=== PATIENT | female | born 1970 | race African-American/Black ===

== ENCOUNTER → 2023-11-11 10:07 | Outpatient (REF) | payer BC, SELFPAY | LOC: HWRAD 10:07 | PROVIDERS: ATTENDING PHYSICIAN Nurse Practitioner Family | DX: R06.00 Dyspnea, unspecified (principal); R07.9 Chest pain, unspecified | CPT/HCPCS: 71046 ==

== ENCOUNTER 2023-11-24 20:16 | Emergency (ER) | payer BC, SELFPAY ==
[2023-11-24] MEDS: ADRENALIN 0.299999999999999989 MG IM (20:22)
[2023-11-24 20:24] VITALS: BP 128/77
[2023-11-24] MEDS: DECADRON 10 MG IV (20:28)
[2023-11-24] MEDS: PEPCID 20 MG IV (20:29)
[2023-11-24] MEDS: NSS 1000 IV (20:29)
[2023-11-24 20:34] LABS: % Basophils 0.6 % (0-2); % Eosinophils 4.1 % (0-6); % Immature Granulocytes 0.2 % (0-0.5); % Lymphocytes 57.6 % (20.5-51.1); % Monocytes 7.2 % (1.7-9.3); % Neutrophils 30.3 % (42.2-75.2); Absolute Basophils 0.1 10^3/uL (0-0.2); Absolute Eosinophils 0.4 10^3/uL (0-0.7); Absolute Lymphocytes 5.8 10^3/uL (1.2-3.4); Absolute Monocytes 0.7 10^3/uL (0.1-0.6); Absolute Neutrophils 3.1 10^3/uL (1.4-6.5); Hemoglobin 15.2 g/dL (12.0-16.0); Mean Corp Hgb Conc. 33.8 g/dL (33.0-37.0); Mean Corpuscular Hgb 29.7 pg (27.0-31.0); Mean Corpuscular Volume 87.9 fL (81.0-99.0); Mean Platelet Volume 10.6 fL (7.4-10.4); Nucleated Red Blood Cells % 0 %; Platelet Count 240 10^3/uL (130-400); Red Blood Cell Count 5.12 10^6/uL (4.20-5.40); Red Cell Dist. Width 13.4 % (11.5-14.5); White Blood Cell Count 10.1 10^3/uL (4.8-10.8)
[2023-11-24 20:55] LABS: ALT (SGPT) 14 U/L (0-35); AST (SGOT) 22 U/L (14-36); Albumin 4.1 g/dl (3.5-5.0); Alkaline Phosphatase 95 U/L (38-126); Blood Urea Nitrogen 19 mg/dl (7-17); Calcium 9.1 mg/dl (8.4-10.2); Carbon Dioxide 28 mmol/L (22-30); Chloride 103 mmol/L (98-107); Glucose 155 mg/dl (70-99); Potassium 3.6 mmol/L (3.5-5.1); Sodium 139 mmol/L (135-145); Total Bilirubin 0.4 mg/dl (0.2-1.3); Total Protein 6.7 g/dl (6.3-8.2); eGFR > 60.00
[2023-11-24 21:00] VITALS: BP 100/49
[2023-11-24 22:00] VITALS: BP 105/62
--- NOTE | 2023-11-24 22:23 | ED.GENMED ---
History of Present Illness
General
Chief Complaint: Allergic Reaction
Source: patient and spouse
Exam Limitations: none
Time Seen by Provider: 11/24/23 20:23
Nursing documentation reviewed up to this point in time: agreed with
Travel History
Have you had any contact with someone who has COVID-19?: No
Do you have any symptoms of coronavirus? Fever > 100 degrees, chills, cough, shortness of breath, sore throat, loss of taste or smell, muscle aches, or headache?: No
History of Present Illness
History of Present Illness:
53-year-old female with past medical history of previous seizure disorder not currently requiring medication, previous stroke anxiety depression presenting to the emergency department today with concerns of swelling of the face and skin
lightheadedness prior to arrival unsure of any specific exposures but was doing laundry at the time. She is unsure if there is any new detergents used no significant trouble breathing no vomiting but does have some stomach cramping
Past History
Past History
ED Past Medical History: Asthma, Cancer (Ovarian cancer, Skin Cervix), CVA ( and TIA Right sided weakness), Hypercholesterolemia, Seizures, Psychiatric (Anxiety ,Depression, PTSD) and Other ( PE, epilepsy, pericarditis, peptic ulcer disease,
enlarged heart Pericarditis, Stomach ulcers)
ED Past Surgical History: Cholecystectomy and Gynecological (Cervical CA with cervical removal, Ovarian mass with removal of the Ovarie, Hysterectomy total)
Social History
Tobacco: Smoker
Alcohol: None
Drug: None
Personal:
Living: with family
Employment: Employed
Family History
Family History: Adopted (Patient is adopted)
Review of Systems
Review of Systems
Allergies reviewed?: Yes
All Other Systems: ROS reviewed and negative except as documented in HPI and ROS
Phy Exam
Physical Exam
Physical Exam:
GENERAL: Alert , in no apparent distress
EYE: pupils equal and reactive
NECK: Supple, no significant adenopathy.
ENT: o/p clr, mmm.
CARDIAC: Regular rate and rhythm .
LUNGS: Clear breath sounds bilaterally, no acute respiratory distress, no wheezes/rales/rhonchi
ABDOMEN: Soft, without focal tenderness, no r/g, no cvat
NEUROLOGICAL: Alert and oriented, no focal neuro deficits
SKIN: Diffuse raised wheals throughout the face neck chest back arms and upper legs.
MUSCULOSKELETAL: No edema, well perfused.
PSYCH: Normal and appropriate interaction.
Course
Orders/Labs/Results
Orders:
Orders
11/24/23 20:19
EPINEPHrine PF [Adrenalin] 1 mg .ROUTE .STK-MED ONE
11/24/23 20:21
EPINEPHrine PF [Adrenalin] 0.3 mg IM NOW STA
11/24/23 20:23
0.9% Sodium Chloride 1000 ml [Nss] 1,000 ml IV BOLUS
Dexamethasone Sod Phosphate [Decadron] 10 mg IV NOW STA
Famotidine [Pepcid] 20 mg IV NOW STA
11/24/23 20:26
Dexamethasone Sod Phosphate [Decadron] 20 mg .ROUTE .STK-MED ONE
Famotidine [Pepcid] 20 mg .ROUTE .STK-MED ONE
11/24/23 20:27
Complete Blood Count/With Diff Urgent
Comprehensive Metabolic Panel Urgent
Abnormal Lab Results
11/24/23
20:27
MPV 10.6 H fL
(7.4-10.4)
Absolute Lymphs (auto) 5.8 H 10^3/uL
(1.2-3.4)
Absolute Monos (auto) 0.7 H 10^3/uL
(0.1-0.6)
Neutrophils % 30.3 L %
(42.2-75.2)
Lymphocytes % 57.6 H %
(20.5-51.1)
BUN 19 H mg/dl
(7-17)
Glucose 155 H mg/dl
(70-99)
11/24/23 20:27
11/24/23 20:27
Vital Signs
Initial and Last Documented VS:
Initial Vital Signs
Pulse Resp Pulse Ox
88 17 98
11/24/23 20:23 11/24/23 20:23 11/24/23 20:23
Last Documented Vital Signs
Pulse Resp Pulse Ox
88 17 98
11/24/23 20:23 11/24/23 20:23 11/24/23 20:23
MDM/Problems Addressed
MDM/Problems Addressed:
53-year-old female presenting to the emergency department today with concerns of diffuse hives over the past 15 minutes took 3 Benadryl prior to arrival but did not use her EpiPen. Unsure of what particular exposure she had. She claims that she
does have some lightheadedness but has been able to swallow denies shortness of breath does have some stomach cramping. Symptoms appear to be consistent with anaphylaxis patient was given dose of epinephrine with immediate improvement of symptoms.
Additionally given steroids as well as famotidine. Patient was monitored for 2 hours with significant improvement of symptoms patient near asymptomatic at time of discharge otherwise return precautions given. Advised for close outpatient follow-up.
*Critical Care Note
Total Time (30-74mins, 75-104mins- exclusive of procedures): Not Applicable
ED Attending Note
-
Portions of this chart may have been created with voice recognition software.� Occasional wrong word or��sound alike� substitutions may have occurred due to the inherent limitations of voice recognition software.
Discharge Plan
Departure
Patient Disposition: Home (Routine Discharge)
Date of Disposition: 11/24/23
Time of Disposition: 22:26
Patient with high blood pressure during this ER visit?: No
Condition: Good
Covid-19: Not Applicable
Discharge Problem:
Allergic reaction
Instructions: Hives (DC)
Prescriptions:
New
prednisone 20 mg tablet
40 mg PO DAILY 4 Days Qty: 8 0RF
cetirizine [Zyrtec] 10 mg tablet
10 mg PO BID 4 Days Qty: 8 0RF
famotidine 20 mg tablet
20 mg PO BID 4 Days Qty: 8 0RF
No Action
Benadryl:
3 tab PO DAILY PRN (Reason: allergic reaction)
atorvastatin 20 mg tablet
20 mg PO DAILY
clonazepam 0.5 mg tablet
0.5 mg PO DAILY PRN (Reason: anxiety)
aspirin 81 mg Tablet,Delayed Release (Dr/Ec)
81 mg PO DAILY
albuterol sulfate 90 mcg/actuation HFA aerosol inhaler
2 puff INHALATION R Q6 PRN (Reason: sob/wheezing)
Referrals:
Jordan Cowart CRNP [Family Provider] -
Activity Restrictions/Additional Instructions:
You came to the emergency department today with concerns of hives. You had additional symptoms that were concerning for potential anaphylaxis. You are given dose of epinephrine as well as a steroid and histamine blockers with significant
improvement after a few hours. Please follow closely with your primary care doctor and continue the prescribed medications over the next 4 days. Return to the emergency department for any worsening, new or concerning symptoms.
Interventions
Interventions:
*Risk Screen - Suicide Last Done: 11/24/23 20:23
*General Assessment Last Done: 11/24/23 20:23
*Neglect/Abuse Screening Last Done: 11/24/23 20:23
ED- Fall Risk Assessment Last Done: 11/24/23 20:23
*ED COVID-19 Vaccine History Last Done: 11/24/23 20:23
ED- Cardiac Assessment Last Done: 11/24/23 20:23
ED- Pulmonary Assessment Last Done: 11/24/23 20:23
ED-Skin Assessment Last Done: 11/24/23 20:23
[2023-11-24 23:00] VITALS: BP 104/61
== END 2023-11-24 23:38 | disposition home or self-care (01) ==
LOC: EMR 20:16
PROVIDERS: Physician Assistant; EMERGENCY PHYSICIAN Emergency Medicine; FAMILY PHYSICIAN Nurse Practitioner Family
DX: T78.40XA Allergy, unspecified, initial encounter (principal); X58.XXXA Exposure to other specified factors, initial encounter; R22.0 Localized swelling, mass and lump, head; R42 Dizziness and giddiness; J45.909 Unspecified asthma, uncomplicated; E78.00 Pure hypercholesterolemia, unspecified; F41.9 Anxiety disorder, unspecified; F43.10 Post-traumatic stress disorder, unspecified; Z87.11 Personal history of peptic ulcer disease; I51.7 Cardiomegaly; F17.200 Nicotine dependence, unspecified, uncomplicated; G40.909 Epilepsy, unspecified, not intractable, without status epilepticus; Z85.41 Personal history of malignant neoplasm of cervix uteri; Z85.43 Personal history of malignant neoplasm of ovary; Z86.73 Personal history of transient ischemic attack (TIA), and cerebral infarction without residual deficits; Z90.49 Acquired absence of other specified parts of digestive tract; Z90.710 Acquired absence of both cervix and uterus
CPT/HCPCS: 99283; 96374; 96375; 96372; 96361; 80053; 85025

== ENCOUNTER 2023-11-25 11:12 | Emergency (ER) | payer BC, SELFPAY ==
[2023-11-25 11:17] VITALS: BP 150/77
[2023-11-25 12:56] VITALS: BP 141/79; BMI 27.2
[2023-11-25 13:00] VITALS: BP 127/82
--- NOTE | 2023-11-25 13:05 | ED.GENMED ---
History of Present Illness
General
Chief Complaint: Allergic Reaction
Source: patient and family
Exam Limitations: none
Time Seen by Provider: 11/25/23 12:44
Nursing documentation reviewed up to this point in time: agreed with
Travel History
Have you had any contact with someone who has COVID-19?: No
Do you have any symptoms of coronavirus? Fever > 100 degrees, chills, cough, shortness of breath, sore throat, loss of taste or smell, muscle aches, or headache?: No
History of Present Illness
History of Present Illness:
Patient is a 53-year-old female with past medical history of PTSD anxiety depression hospitalized in August for depression,' micro seizures' presents to the ER for evaluation. Patient is a poor historian son at bedside. Patient has a history of
chronic hives with no diagnosis. She was seen here yesterday for allergic reaction hives. Yesterday she was given epinephrine and Benadryl Pepcid and was discharged home with Zyrtec prednisone and famotidine. In addition to these medicines she
did take Benadryl this morning. She presents back to the ER because when she woke up this morning her eyelids were swollen and she 'felt off.'
She presently denies any chest pain shortness of breath. Denies any recent fever or chills. She had no difficulty breathing at home or here in the ER. Denies any lip or tongue swelling. No additional rash since yesterday. Hives have since
resolved.
Triage note states that patient is' detoxing off meds.' She reports that her family doctor has simply taking her off Trileptal Rexulti and Oksana which she was previously on.
Past History
Past History
ED Past Medical History: Asthma, Cancer (Ovarian cancer, Skin Cervix), CVA ( and TIA Right sided weakness), Hypercholesterolemia, Seizures, Psychiatric (Anxiety ,Depression, PTSD) and Other ( PE, epilepsy, pericarditis, peptic ulcer disease,
enlarged heart Pericarditis, Stomach ulcers)
ED Past Surgical History: Cholecystectomy and Gynecological (Cervical CA with cervical removal, Ovarian mass with removal of the Ovarie, Hysterectomy total)
Social History
Tobacco: Smoker
Alcohol: None
Drug: None
Personal:
Living: with family
Employment: Employed
Family History
Family History: Adopted (Patient is adopted)
Review of Systems
Review of Systems
Allergies reviewed?: Yes
All Other Systems: ROS reviewed and negative except as documented in HPI and ROS
Constitutional: Reports no symptoms; Denies fever, fatigue or chills
Respiratory: Denies trouble breathing
Cardiac: Reports no symptoms; Denies palpitations
ABD/GI: Reports no symptoms; Denies abdominal pain, nausea or vomiting
: Reports no symptoms
Musculoskeletal: Reports no symptoms
Skin: Reports no symptoms; Denies itching or rash
Neurological: Reports other ('feel off' patient)
Phy Exam
General Physical Exam
General Presentation: no apparent distress
General age: appears stated age
General Skin: warm and dry
General Habitus: normal
General Mental: alert
General Hydration: appears well hydrated
ENT Exam
ENT Exam: EOMI, TM's normal and other (faint minimal erythema to bilateral upper eyelids)
Eye Exam
Eye Exam: PERRL and EOMI
Eye Exam General: PERRL: bilateral and EOM intact: bilateral
Pupil Exam: Bilateral: round and reactive
Cardiovascular Exam
Cardiovascular Exam: regular rate/rhythm, no murmur and normal peripheral pulses
Pulmonary Exam
Pulmonary Exam: lungs clear and no respiratory distress
Neurological Exam
Neurological Exam: alert and oriented x3
Vincent Coma Scale
Eye Opening: Spontaneous
Verbal Response: Oriented
Motor Response: Obeys Commands
GCS Total Score: 15
Musculoskeletal Exam
Musculoskeletal Exam: full ROM
Skin Exam
Skin Exam: normal color and warm/dry
Psychiatric Exam
Psychiatric Exam: normal mood/affect
Course
Orders/Labs/Results
Orders:
Orders
11/25/23 11:21
ECG [Electrocardiogram (*1)] Urgent
Reason for Study: Other
Other Reason for Exam: tingling
11/25/23 11:22
EKG- Treatment ONCE
11/25/23 13:03
Complete Blood Count/With Diff Urgent
Comprehensive Metabolic Panel Urgent
Troponin I Urgent
11/25/23 13:05
CT Head W/o Iv Contrast Urgent
Comment:
Reason For Exam: change in ms
0.9% Sodium Chloride 1000 ml [Nss] 1,000 ml IV BOLUS
11/25/23 13:49
Urine Drug Abuse Screen Urgent
Date Specimen was Collected: 11/25/23
Time Specimen was Collected: 13:36
Abnormal Lab Results
11/25/23
13:03
WBC 11.2 H 10^3/uL
(4.8-10.8)
MPV 10.8 H fL
(7.4-10.4)
Absolute Neuts (auto) 9.8 H 10^3/uL
(1.4-6.5)
Neutrophils % 87.5 H %
(42.2-75.2)
Lymphocytes % 10.9 L %
(20.5-51.1)
Monocytes % 1.1 L %
(1.7-9.3)
Glucose 120 H mg/dl
(70-99)
11/25/23 13:03
11/25/23 13:03
Vital Signs
Initial and Last Documented VS:
Initial Vital Signs
Temp Pulse Resp BP Pulse Ox
98.3 F 78 20 150/77 98
11/25/23 11:17 11/25/23 11:17 11/25/23 11:17 11/25/23 11:17 11/25/23 11:17
Last Documented Vital Signs
Temp Pulse Resp BP Pulse Ox
98.3 F 67 16 124/79 99
11/25/23 11:17 11/25/23 14:00 11/25/23 14:00 11/25/23 14:00 11/25/23 14:00
MDM/Problems Addressed
MDM/Problems Addressed:
Patient presents awake alert no acute distress. Patient was seen here for allergic reaction last night and presented to the ER because she just felt off this morning she noticed her upper eyelids were puffy. She has a history of depression anxiety
recently taken off her medication by family doctor.
She presents however in no acute distress well-appearing
With vague complaints patient's workup was unremarkable including a negative CT head though she denied headache.
Patient has stable vital signs denies any recent fever she is afebrile here lungs are clear no difficulty breathing lip or tongue swelling nonhypoxic. She presents mildly anxious nontachycardic nontachypneic nonhypoxic. White count minimally
elevated 11.2 patient was given steroids and on steroids presently prescribed yesterday normal electrolytes.
Patient is positive for marijuana.
No acute abnormalities on workup
will d/c home
*Radiology
Radiology exam reviewed: radiology read reviewed
*Pulse Oximetry
Patient hypoxic: no
*EKG
Interpreted by ED Provider?: Yes
Interpretation: normal
Comparison EKG: no changes
Heart Rate: 65
Rate: normal
Rhythm: sinus
Ischemia: no ischemia
*Critical Care Note
Total Time (30-74mins, 75-104mins- exclusive of procedures): Not Applicable
ED Attending Note
-
Portions of this chart may have been created with voice recognition software.� Occasional wrong word or��sound alike� substitutions may have occurred due to the inherent limitations of voice recognition software.
Discharge Plan
Departure
Patient Disposition: Home (Routine Discharge)
Date of Disposition: 11/25/23
Time of Disposition: 14:30
Patient with high blood pressure during this ER visit?: No
Discharge Problem:
medical evaluation
Instructions: BLOOD PRESSURE
Prescriptions:
No Action
Benadryl:
3 tab PO DAILY PRN (Reason: allergic reaction)
atorvastatin 20 mg tablet
20 mg PO DAILY
clonazepam 0.5 mg tablet
0.5 mg PO DAILY PRN (Reason: anxiety)
aspirin 81 mg Tablet,Delayed Release (Dr/Ec)
81 mg PO DAILY
albuterol sulfate 90 mcg/actuation HFA aerosol inhaler
2 puff INHALATION R Q6 PRN (Reason: sob/wheezing)
prednisone 20 mg tablet
40 mg PO DAILY 4 Days Qty: 8 0RF
cetirizine [Zyrtec] 10 mg tablet
10 mg PO BID 4 Days Qty: 8 0RF
famotidine 20 mg tablet
20 mg PO BID 4 Days Qty: 8 0RF
Referrals:
Jordan Cowart CRNP [Family Provider] -
Activity Restrictions/Additional Instructions:
As discussed you were seen here in the ER today for evaluation and your workup was unremarkable. Follow-up with your family doctor as discussed in the next several days for reevaluation continue to take your medications as previously prescribed.
Return if any worsening of symptoms.
Interventions
Interventions:
*Risk Screen - Suicide Last Done: 11/25/23 11:17
*General Assessment Last Done: 11/25/23 11:17
*Neglect/Abuse Screening Last Done: 11/25/23 11:17
*ED COVID-19 Vaccine History Last Done: 11/25/23 12:59
ED- Cardiac Assessment Last Done: 11/25/23 12:59
ED- Pulmonary Assessment Last Done: 11/25/23 12:59
ED-Skin Assessment Last Done: 11/25/23 12:59
[2023-11-25 13:15] LABS: % Basophils 0.1 % (0-2); % Immature Granulocytes 0.4 % (0-0.5); % Lymphocytes 10.9 % (20.5-51.1); % Monocytes 1.1 % (1.7-9.3); % Neutrophils 87.5 % (42.2-75.2); Absolute Lymphocytes 1.2 10^3/uL (1.2-3.4); Absolute Monocytes 0.1 10^3/uL (0.1-0.6); Absolute Neutrophils 9.8 10^3/uL (1.4-6.5); Hemoglobin 13.6 g/dL (12.0-16.0); Mean Corp Hgb Conc. 34.9 g/dL (33.0-37.0); Mean Corpuscular Hgb 29.9 pg (27.0-31.0); Mean Corpuscular Volume 85.7 fL (81.0-99.0); Mean Platelet Volume 10.8 fL (7.4-10.4); Nucleated Red Blood Cells % 0 %; Platelet Count 216 10^3/uL (130-400); Red Blood Cell Count 4.55 10^6/uL (4.20-5.40); Red Cell Dist. Width 13.4 % (11.5-14.5); White Blood Cell Count 11.2 10^3/uL (4.8-10.8)
[2023-11-25] MEDS: NSS 1000 IV (13:21)
[2023-11-25 13:26] LABS: ALT (SGPT) 13 U/L (0-35); AST (SGOT) 16 U/L (14-36); Albumin 4.1 g/dl (3.5-5.0); Alkaline Phosphatase 87 U/L (38-126); Blood Urea Nitrogen 14 mg/dl (7-17); Calcium 9.5 mg/dl (8.4-10.2); Carbon Dioxide 22 mmol/L (22-30); Chloride 107 mmol/L (98-107); Estimated Creatinine Clearance 115 ml/min; Glucose 120 mg/dl (70-99); Potassium 4.1 mmol/L (3.5-5.1); Sodium 138 mmol/L (135-145); Total Bilirubin 0.3 mg/dl (0.2-1.3); Total Protein 6.7 g/dl (6.3-8.2); eGFR > 60.00
[2023-11-25 13:37] LABS: Troponin I < 0.012 ng/ml
[2023-11-25 14:00] VITALS: BP 124/79
[2023-11-25 14:18] LABS: Amphetamines Negative (Negative); Barbiturates Negative (Negative); Benzodiazepines Negative (Negative); Buprenorphine Negative (Negative); Cocaine Negative (Negative); Marijuana Positive (Negative); Methadone Negative (Negative); Methamphetamines Negative (Negative); Opiates Negative (Negative); Phencyclidine Negative (Negative); Tricyclic Antidepressants Negative (Negative)
== END 2023-11-25 15:08 | disposition home or self-care (01) ==
LOC: EMR 11:12
PROVIDERS: Nurse Practitioner; EMERGENCY PHYSICIAN Emergency Medicine; FAMILY PHYSICIAN Nurse Practitioner Family
DX: Z00.00 Encounter for general adult medical examination without abnormal findings (principal); F17.200 Nicotine dependence, unspecified, uncomplicated; F12.90 Cannabis use, unspecified, uncomplicated; D72.829 Elevated white blood cell count, unspecified
CPT/HCPCS: 99285; 96360; 70450; 80053; 80306; 84484; 85025; 93005

== ENCOUNTER → 2023-12-02 08:11 | Outpatient (REF) | payer BC, SELFPAY | LOC: HWRAD 08:11 | PROVIDERS: ATTENDING PHYSICIAN Nurse Practitioner Family | DX: Z12.31 Encounter for screening mammogram for malignant neoplasm of breast (principal); R10.9 Unspecified abdominal pain; R91.1 Solitary pulmonary nodule | CPT/HCPCS: 71260; 76700; 77063; 77067; Q9967 ==

== ENCOUNTER 2024-01-21 04:32 | Emergency (ER) | payer BC, MEDICARE, SELFPAY ==
[2024-01-21 04:35] VITALS: BP 158/74
--- NOTE | 2024-01-21 05:24 | ED.GENMED ---
History of Present Illness
<JAGJIT Adhikari - Last Filed: 01/21/24 05:49>
General
Chief Complaint: Swelling
Source: patient and significant other
Exam Limitations: none
Time Seen by Provider: 01/21/24 04:54
Nursing documentation reviewed up to this point in time: agreed with
Travel History
Have you had any contact with someone who has COVID-19?: No
Do you have any symptoms of coronavirus? Fever > 100 degrees, chills, cough, shortness of breath, sore throat, loss of taste or smell, muscle aches, or headache?: No
History of Present Illness
History of Present Illness:
This is a 53 year old female with significant PMHx presents to the ED with complaint of R sided cheek pain and swelling x1 day. She reports she was watching tv when she noticed facial swelling. She states pain and swelling worsened throughout the
night. She states she has pain with chewing and had chicken noodle soup for dinner. She took Ibuprofen aroun 8:00pm last night that provided mild relief and Benadyl 50mg which did not. She denies shortness of breath, chest pain, headache, NVD, sore
throat, hoarseness, drooling, fevers, or chills.
Past History
<JAGJIT Adhikari - Last Filed: 01/21/24 05:49>
Past History
ED Past Medical History: Asthma, Cancer (Ovarian cancer, Skin Cervix), CVA ( and TIA Right sided weakness), Hypercholesterolemia, Seizures, Psychiatric (Anxiety ,Depression, PTSD) and Other ( PE, epilepsy, pericarditis, peptic ulcer disease,
enlarged heart Pericarditis, Stomach ulcers)
ED Past Surgical History: Cholecystectomy and Gynecological (Cervical CA with cervical removal, Ovarian mass with removal of the Ovarie, Hysterectomy total)
Social History
Tobacco: Smoker
Alcohol: None
Drug: None
Personal:
Living: with family
Employment: Employed
Family History
Family History: Adopted (Patient is adopted)
Review of Systems
<JAGJIT Adhikari - Last Filed: 01/21/24 05:49>
Review of Systems
Allergies reviewed?: Yes
All Other Systems: Not applicable
Constitutional: Reports no symptoms
EENT: Reports mouth pain (R sided ) and mouth swelling (R sided )
Respiratory: Reports no symptoms
Cardiac: Reports no symptoms
ABD/GI: Reports no symptoms
: Reports no symptoms
Musculoskeletal: Reports no symptoms
Skin: Reports no symptoms
Neurological: Reports no symptoms
Endocrine: Reports no symptoms
Hematologic/Lymphatic: Reports no symptoms
Psychiatric: Reports no symptoms
Phy Exam
<JAGJIT Adhikari - Last Filed: 01/21/24 05:49>
General Physical Exam
General Presentation: well appearing and no apparent distress
General Skin: warm and dry
General Habitus: normal
General Mental: alert
General Hydration: appears well hydrated
ENT Exam
ENT Exam: EOMI, pharynx normal, neck supple, normocephalic and other (R sided facial swelling, R inferior 2nd molar erythema and tender )
Eye Exam
Eye Exam: PERRL, cornea clear and conjunctiva normal
Cardiovascular Exam
Cardiovascular Exam: regular rate/rhythm, no edema, no murmur and normal peripheral pulses
Pulmonary Exam
Pulmonary Exam: lungs clear, no respiratory distress, no rales, no crackles, no rhonchi, no stridor, no wheezing and no cough
Gastrointestinal Exam
Gastrointestinal Exam: normal bowel sounds, non tender, soft, no organomegaly, no pulsatile mass and non distended
Neurological Exam
Neurological Exam: alert, oriented x3, no motor deficits and speech normal
Musculoskeletal Exam
Musculoskeletal Exam: full ROM and no edema
Skin Exam
Skin Exam: normal color, warm/dry, no rash and no petechia
Psychiatric Exam
Psychiatric Exam: normal mood/affect
Scores
<Caty Leonardo DO - Last Filed: 01/21/24 05:49>
Heart Failure Risk
Heart Failure Risk Score: Not Applicable
Course
<JAGJIT Adhikari - Last Filed: 01/21/24 05:49>
Orders/Labs/Results
Orders:
Orders
01/21/24 05:23
Clindamycin HCl [Cleocin] 300 mg PO NOW STA
Ketorolac [Toradol] 60 mg IM NOW STA
Vital Signs
Initial and Last Documented VS:
Initial Vital Signs
Temp Pulse Resp BP Pulse Ox
98 F 58 22 158/74 97
01/21/24 04:35 01/21/24 04:35 01/21/24 04:35 01/21/24 04:35 01/21/24 04:35
Last Documented Vital Signs
Temp Pulse Resp BP Pulse Ox
98 F 58 22 158/74 97
01/21/24 04:35 01/21/24 04:35 01/21/24 04:35 01/21/24 04:35 01/21/24 05:35
<Caty Leonardo DO - Last Filed: 01/21/24 05:49>
Orders/Labs/Results
Orders:
Orders
01/21/24 05:23
Clindamycin HCl [Cleocin] 300 mg PO NOW STA
Ketorolac [Toradol] 60 mg IM NOW STA
Vital Signs
Initial and Last Documented VS:
Initial Vital Signs
Temp Pulse Resp BP Pulse Ox
98 F 58 22 158/74 97
01/21/24 04:35 01/21/24 04:35 01/21/24 04:35 01/21/24 04:35 01/21/24 04:35
Last Documented Vital Signs
Temp Pulse Resp BP Pulse Ox
98 F 58 22 158/74 97
01/21/24 04:35 01/21/24 04:35 01/21/24 04:35 01/21/24 04:35 01/21/24 05:35
<JAGJIT Adhikari - Last Filed: 01/21/24 05:49>
MDM/Problems Addressed
Differential Diagnosis Includes:
Dental abscess, peritonsillar abscess, retropharyngeal abscess
Peritonsillar abscess considered due to facial swelling, however she does not have hoarseness, drooling, or muffling voice. Her uvula is midline. Retropharyngeal abscess considered, however her swelling is more on her R submandibular region. I
suspect this is a dental abscess due to an infected R inferior 2nd molar. She has pain with chewing. She has no fevers. Will prescribe Clindamycin.
<Caty Leonardo DO - Last Filed: 01/21/24 05:49>
*Pulse Oximetry
Patient hypoxic: no
*Critical Care Note
Total Time (30-74mins, 75-104mins- exclusive of procedures): Not Applicable
ED Attending Note
<JAGJIT Adhkiari - Last Filed: 01/21/24 05:49>
-
Portions of this chart may have been created with voice recognition software.� Occasional wrong word or��sound alike� substitutions may have occurred due to the inherent limitations of voice recognition software.
<Caty Leonardo DO - Last Filed: 01/21/24 05:49>
ED Attending Note
Patient seen and examined by attending physician: Yes
I performed the substantive portion of visit, reviewed & personally made and approve the management plan that is documented in note by myself or BI.: Yes
I performed a history and physical exam of patient and discussed management with resident, I reviewed resident's note and agree with documented findings and plan of care.: Yes
ED Attending Note:
This is a 53-year-old woman with prior history of PTSD/anxiety, depression, seizure disorder, chronic idiopathic hives who presents with swelling and pain right mandibular region that began yesterday, progressively worse through the evening. She
was concerned for possible allergic reaction but denies itch, no rash. No sore throat or difficulty swallowing.
She does admit to moderate right mandibular dental pain that began yesterday and since yesterday has been limiting her oral intake to soup, soft foods due to right mandibular molar pain.
She has not had a fever nor chills. No neck pain or coughing or shortness of breath.
She took a dose of ibuprofen for pain around 8 PM last night.
GENERAL: 53-year-old woman appears somewhat older than stated age, bright and alert, pleasant, appears in no acute distress. Respirations are easy and nonlabored. Speech is clear, no difficulty handling secretions.
EYE: pupils equal and reactive. anicteric
NECK: Supple, nontender, no meningismus, no significant adenopathy.
ENT: There is moderate soft tissue swelling right mid mandibular region with moderate local tenderness to palpation. Several dental fillings right mandibular molars with moderate tenderness right mandibular second molar with mild local gingival
erythema and edema but no fluctuance. Posterior pharynx is clear, oral mucosa is moist. TM clear b/l, nares patent.
CARDIAC: Regular rate and rhythm. no murmur.
LUNGS: Clear breath sounds bilaterally, no acute respiratory distress, no wheezes/rales/rhonchi
ABDOMEN: Soft, nondistended, without focal tenderness
NEUROLOGICAL: Alert and oriented x3, no focal neuro deficits. Gait is steady.
SKIN: Warm and dry, normal color, skin intact. No rash.
MUSCULOSKELETAL: No C/C/E. peripheral pulses are full and equal b/l. No palpable tenderness.
PSYCH: Normal and appropriate interaction.
History and exam consistent with acute dentalgia, dental abscess with local mandibular soft tissue swelling. There is no posterior pharyngeal edema, no swelling submandibular region nor significant adenopathy.
Will initiate a course of clindamycin and will give an IM dose of Toradol for pain.
Recommend continuing with soft diet, clear liquids with plan for prompt follow-up with her dentist for recheck.
Discharge Plan
Departure
Patient Disposition: Home (Routine Discharge)
Date of Disposition: 01/21/24
Time of Disposition: 05:40
Patient with high blood pressure during this ER visit?: Yes
Condition: Good
Discharge Problem:
Abscess, dental
Instructions: Soft Diet, Tooth Abscess ED
Prescriptions:
New
clindamycin HCl 300 mg capsule
300 mg PO QID Qty: 28 0RF
ibuprofen 800 mg tablet
800 mg PO QIDPRN PRN (Reason: pain, fever) Qty: 30 0RF
No Action
Benadryl:
3 tab PO DAILY PRN (Reason: allergic reaction)
atorvastatin 20 mg tablet
20 mg PO DAILY
clonazepam 0.5 mg tablet
0.5 mg PO DAILY PRN (Reason: anxiety)
aspirin 81 mg Tablet,Delayed Release (Dr/Ec)
81 mg PO DAILY
albuterol sulfate 90 mcg/actuation HFA aerosol inhaler
2 puff INHALATION R Q6 PRN (Reason: sob/wheezing)
prednisone 20 mg tablet
40 mg PO DAILY 4 Days Qty: 8 0RF
cetirizine [Zyrtec] 10 mg tablet
10 mg PO BID 4 Days Qty: 8 0RF
famotidine 20 mg tablet
20 mg PO BID 4 Days Qty: 8 0RF
Referrals:
Jordan Cowart CRNP [Family Provider] -
Activity Restrictions/Additional Instructions:
Continue soft, bland diet avoid chewing on that right side.
Elevate head of bed and you can apply local ice versus heat to the right side of your face for comfort.
Call your dentist on Tuesday for prompt follow-up appointment/recheck.
Interventions
Interventions:
*Risk Screen - Suicide Last Done: 01/21/24 04:35
*General Assessment Last Done: 01/21/24 05:29
*Neglect/Abuse Screening Last Done: 01/21/24 04:35
ED- Fall Risk Assessment Last Done: 01/21/24 05:30
Discharge Date and Time
Print Language: SLOVENIAN
[2024-01-21 05:28] VITALS: BMI 27.5
[2024-01-21] MEDS: TORADOL 60 MG IM (05:36)
[2024-01-21] MEDS: CLEOCIN 300 MG PO (05:37)
[2024-01-21 06:05] VITALS: BP 130/78
== END 2024-01-21 06:06 | disposition home or self-care (01) ==
LOC: EMR 04:32
PROVIDERS: EMERGENCY PHYSICIAN Emergency Medicine; FAMILY PHYSICIAN Nurse Practitioner Family
DX: K04.7 Periapical abscess without sinus (principal); F17.200 Nicotine dependence, unspecified, uncomplicated; R03.0 Elevated blood-pressure reading, without diagnosis of hypertension
CPT/HCPCS: 99283; 96372; 99285

== ENCOUNTER 2024-02-20 10:49 | Emergency (ER) | payer BC, SELFPAY ==
[2024-02-20 10:56] VITALS: BP 154/88
[2024-02-20 11:30] VITALS: BP 153/73
--- NOTE | 2024-02-20 11:33 | ED.GENMED ---
History of Present Illness
General
Chief Complaint: Breathing Problem
Source: patient
Exam Limitations: none
Time Seen by Provider: 02/20/24 11:10
Nursing documentation reviewed up to this point in time: agreed with
Travel History
Have you had any contact with someone who has COVID-19?: No
Do you have any symptoms of coronavirus? Fever > 100 degrees, chills, cough, shortness of breath, sore throat, loss of taste or smell, muscle aches, or headache?: No
History of Present Illness
History of Present Illness:
pt is a 53 yo F with long list of medical problems including seizure, stroke, cancer, and this episodic allergic reaction she seems to keep getting presents for the feeling of mucus in her chest but created some anxiety today when she can get the
mucus up about 1 hour ago. Patient says that 3 days ago while in [place] she had an allergic reaction where she got hives and felt shortness of breath. She was given Benadryl and 1 dose of steroids but not epi. Previously here she has had a dose
of epinephrine when her face got swollen with 1 of these episodes. She said over the last couple of months she has had several. She has no idea what the triggers are. 3 days ago in [place] her symptoms improved and she went home without any
prescriptions for steroids and has not been on Benadryl. Today she started feeling tight again in her chest like how she feels when she is going to get 1 of these reactions and then developed hives while she was in the waiting room. They are not
significant hives as she has had before and she has no facial swelling or tongue swelling or throat closing sensation but she is not sure because she feels very anxious if her symptoms are going to progress. She also is under a lot of emotional
stress. Patient has previously been under the care of a cytotechnologist supervisor for joint pain but has no diagnosis. She has no known food allergies however she is never been to an packing room worker
Past History
Past History
ED Past Medical History: Asthma, Cancer (Ovarian cancer, Skin Cervix), CVA ( and TIA Right sided weakness), Hypercholesterolemia, Seizures, Psychiatric (Anxiety ,Depression, PTSD) and Other ( PE, epilepsy, pericarditis, peptic ulcer disease,
enlarged heart Pericarditis, Stomach ulcers)
ED Past Surgical History: Cholecystectomy and Gynecological (Cervical CA with cervical removal, Ovarian mass with removal of the Ovarie, Hysterectomy total)
Social History
Tobacco: Smoker
Alcohol: None
Drug: None
Personal:
Living: with family
Employment: Employed
Family History
Family History: Adopted (Patient is adopted)
Review of Systems
Review of Systems
Allergies reviewed?: Yes
All Other Systems: Not applicable
Phy Exam
Physical Exam
Physical Exam:
GENERAL: Alert , seems mildly anxious
EYE: pupils equal and reactive
NECK: Supple
ENT: o/p clr, mmm. Normal phonation, normal swallowing, no edema
CARDIAC: Regular rate and rhythm .
LUNGS: Clear breath sounds bilaterally, no acute respiratory distress, no wheezes/rales/rhonchi
ABDOMEN: Soft, without focal tenderness, no r/g, no cvat, normal bowel sounds
NEUROLOGICAL: Alert and oriented, no focal neuro deficits
SKIN: Warm and dry, skin intact. Patient has diffuse very mild urticaria, it is scattered all over not including her face but on her chest, arms, legs mostly but the hives are small and not coalescent
MUSCULOSKELETAL: No edema, well perfused. neg lori's sign
PSYCH: Anxious
Scores
Heart Failure Risk
Heart Failure Risk Score: Not Applicable
Course
Orders/Labs/Results
Orders:
Orders
02/20/24 10:50
Electrocardiogram (*1) Urgent
Reason for Study: Shortness of Breath
02/20/24 10:51
EKG- Treatment ONCE
02/20/24 11:30
Cardiac Monitoring- Treatment ONCE
0.9% Sodium Chloride 1000 ml [Nss] 1,000 ml IV BOLUS
Diphenhydramine [Benadryl] 50 mg IV NOW STA
MethylPREDNISolone PF [Solu-Medrol Pf] 125 mg IV NOW STA
02/20/24 11:31
EKG- Treatment ONCE
02/20/24 11:33
CR Chest - 2 Views Urgent
Comment:
Reason For Exam: sob
02/20/24 12:06
Complete Blood Count/With Diff Urgent
Comprehensive Metabolic Panel Urgent
Abnormal Lab Results
02/20/24
12:06
Hct 36.9 L %
(37.0-47.0)
MPV 10.6 H fL
(7.4-10.4)
Glucose 100 H mg/dl
(70-99)
02/20/24 12:06
02/20/24 12:06
Vital Signs
Initial and Last Documented VS:
Initial Vital Signs
Temp Pulse Resp BP Pulse Ox
98.1 F 65 18 154/88 99
02/20/24 10:56 02/20/24 10:56 02/20/24 10:56 02/20/24 10:56 02/20/24 10:56
Last Documented Vital Signs
Temp Pulse Resp BP Pulse Ox
98.1 F 58 16 154/67 100
02/20/24 10:56 02/20/24 13:36 02/20/24 13:36 02/20/24 13:36 02/20/24 13:36
MDM/Problems Addressed
Differential Diagnosis Includes:
Allergic reaction, chronic urticaria
MDM/Problems Addressed:
53-year-old female with history of multiple medical problems presents for symptoms of mild shortness of breath with hives which are similar to how her anaphylactic-like reactions have occurred over the last couple of months. She has been here once
before and received epinephrine when her face was swollen. Today her face has not felt swollen and she has no trouble breathing or talking but she was concerned it may progress that way. 3 days ago she was seen in another ER for similar symptoms
and was not given epinephrine that time. She did not use her own EpiPen. Patient says this is much more mild than previous. On exam she is anxious and has scattered mild hives but no facial swelling and no vomiting and no throat discomfort or
closing sensation, no wheezing. Patient symptoms fully resolved with Benadryl and steroids. Will give her a course of steroids for the next couple days and highly encouraged that she follow-up with allergy and rheumatology. Her blood work
otherwise was unremarkable and her EKG was nonischemic, chest x-ray was independently read by me and negative
*Critical Care Note
Total Time (30-74mins, 75-104mins- exclusive of procedures): Not Applicable
ED Attending Note
-
Portions of this chart may have been created with voice recognition software.� Occasional wrong word or��sound alike� substitutions may have occurred due to the inherent limitations of voice recognition software.
Discharge Plan
Departure
Patient Disposition: Home (Routine Discharge)
Date of Disposition: 02/20/24
Time of Disposition: 13:22
Patient with high blood pressure during this ER visit?: Yes
Condition: Fair
Discharge Problem:
Urticaria, Allergic reaction
Instructions: Allergic Reaction ED
Prescriptions:
New
prednisone 20 mg tablet
40 mg PO DAILY Qty: 8 0RF
No Action
Benadryl:
3 tab PO DAILY PRN (Reason: allergic reaction)
atorvastatin 20 mg tablet
20 mg PO DAILY
clonazepam 0.5 mg tablet
0.5 mg PO DAILY PRN (Reason: anxiety)
aspirin 81 mg Tablet,Delayed Release (Dr/Ec)
81 mg PO DAILY
albuterol sulfate 90 mcg/actuation HFA aerosol inhaler
2 puff INHALATION R Q6 PRN (Reason: sob/wheezing)
prednisone 20 mg tablet
40 mg PO DAILY 4 Days Qty: 8 0RF
cetirizine [Zyrtec] 10 mg tablet
10 mg PO BID 4 Days Qty: 8 0RF
famotidine 20 mg tablet
20 mg PO BID 4 Days Qty: 8 0RF
clindamycin HCl 300 mg capsule
300 mg PO QID Qty: 28 0RF
ibuprofen 800 mg tablet
800 mg PO QIDPRN PRN (Reason: pain, fever) Qty: 30 0RF
Referrals:
Jordan Cowart CRNP [Family Provider] - Follow up in 2-3 days
Activity Restrictions/Additional Instructions:
Take prednisone once a day starting tomorrow for the next 4 days. Use Benadryl every 8 hours as needed for hives.
Make sure to follow-up with an packing room worker as well as your cytotechnologist supervisor to figure out why you keep getting these reactions.
If you have any recurrence or worsening symptoms either use your EpiPen or call 911
Return for any concerns
Interventions
Interventions:
*Risk Screen - Suicide Last Done: 02/20/24 13:50
*General Assessment Last Done: 02/20/24 12:25
*Neglect/Abuse Screening Last Done: 02/20/24 12:25
ED- Fall Risk Assessment Last Done: 02/20/24 12:25
*ED COVID-19 Vaccine History Last Done: 02/20/24 12:25
*Nursing Disposition Last Done: 02/20/24 13:50
ED- Cardiac Assessment Last Done: 02/20/24 12:25
ED- Pulmonary Assessment Last Done: 02/20/24 12:25
Discharge Date and Time
Discharge Date/Time: 02/20/24 13:50
Print Language: THAI
[2024-02-20] MEDS: NSS 1000 IV (12:17)
[2024-02-20] MEDS: BENADRYL 50 MG IV (12:18)
[2024-02-20] MEDS: SOLU-MEDROL PF 125 MG IV (12:19)
[2024-02-20 12:35] LABS: % Basophils 0.8 % (0-2); % Eosinophils 2.4 % (0-6); % Immature Granulocytes 0.3 % (0-0.5); % Lymphocytes 45.3 % (20.5-51.1); % Monocytes 6.9 % (1.7-9.3); % Neutrophils 44.3 % (42.2-75.2); Absolute Basophils 0.1 10^3/uL (0-0.2); Absolute Eosinophils 0.2 10^3/uL (0-0.7); Absolute Monocytes 0.5 10^3/uL (0.1-0.6); Absolute Neutrophils 2.9 10^3/uL (1.4-6.5); Hematocrit 36.9 % (37.0-47.0); Hemoglobin 13.2 g/dL (12.0-16.0); Mean Corp Hgb Conc. 35.8 g/dL (33.0-37.0); Mean Corpuscular Hgb 30.2 pg (27.0-31.0); Mean Corpuscular Volume 84.4 fL (81.0-99.0); Mean Platelet Volume 10.6 fL (7.4-10.4); Nucleated Red Blood Cells % 0 %; Platelet Count 178 10^3/uL (130-400); Red Blood Cell Count 4.37 10^6/uL (4.20-5.40); Red Cell Dist. Width 13.4 % (11.5-14.5); White Blood Cell Count 6.6 10^3/uL (4.8-10.8)
[2024-02-20 12:53] LABS: ALT (SGPT) 14 U/L (0-35); AST (SGOT) 23 U/L (14-36); Albumin 4.1 g/dl (3.5-5.0); Alkaline Phosphatase 85 U/L (38-126); Blood Urea Nitrogen 11 mg/dl (7-17); Calcium 9.5 mg/dl (8.4-10.2); Carbon Dioxide 25 mmol/L (22-30); Chloride 107 mmol/L (98-107); Glucose 100 mg/dl (70-99); Potassium 3.7 mmol/L (3.5-5.1); Sodium 140 mmol/L (135-145); Total Bilirubin 0.5 mg/dl (0.2-1.3); Total Protein 6.6 g/dl (6.3-8.2); eGFR > 60.00
[2024-02-20 13:35] VITALS: BP 154/67
[2024-02-20 13:36] VITALS: BP 154/67
== END 2024-02-20 13:50 | disposition home or self-care (01) ==
LOC: EMR 10:49
PROVIDERS: Physician Assistant; EMERGENCY PHYSICIAN Emergency Medicine; FAMILY PHYSICIAN Nurse Practitioner Family
DX: T78.40XA Allergy, unspecified, initial encounter (principal); L50.0 Allergic urticaria; R06.02 Shortness of breath; R03.0 Elevated blood-pressure reading, without diagnosis of hypertension; J45.909 Unspecified asthma, uncomplicated; I69.351 Hemiplegia and hemiparesis following cerebral infarction affecting right dominant side; E78.00 Pure hypercholesterolemia, unspecified; Z73.3 Stress, not elsewhere classified; F41.9 Anxiety disorder, unspecified; F32.A Depression, unspecified; F43.10 Post-traumatic stress disorder, unspecified; G40.909 Epilepsy, unspecified, not intractable, without status epilepticus; F17.200 Nicotine dependence, unspecified, uncomplicated; Z87.11 Personal history of peptic ulcer disease; Z85.43 Personal history of malignant neoplasm of ovary; Z85.828 Personal history of other malignant neoplasm of skin; Z90.49 Acquired absence of other specified parts of digestive tract; Z79.82 Long term (current) use of aspirin; Z88.1 Allergy status to other antibiotic agents; Z91.040 Latex allergy status; Z88.5 Allergy status to narcotic agent; Z88.0 Allergy status to penicillin; Z88.8 Allergy status to other drugs, medicaments and biological substances; Z91.048 Other nonmedicinal substance allergy status
CPT/HCPCS: 99284; 96374; 96375; 71046; 80053; 85025; 93005